=== PATIENT | female | born 2000 | race Native Hawaiian/Other Pacific Islander ===

== ENCOUNTER 2019-08-28 19:44 | Emergency (ER) | payer OTHER ==
--- NOTE | 2019-08-28 23:29 | XRay Report ---
CHEST 1 VIEW INDICATION: Chest Pain COMPARISON: None FINDINGS: Support devices: None Heart: Normal Lungs/Pleura: No acute pulmonary or pleural findings. IMPRESSION: 1. No acute disease. Signer Name: Too Turner MD Signed: 08/28/2019 11:24 PM Workstation Name: [email or web address]
--- NOTE | 2019-08-29 02:12 | Emergency Department Report ---
- General Chief Complaint: Chest Pain Stated Complaint: CHEST PAIN/STEPHANIE Time Seen by Provider: 08/29/19 01:51 Source: patient Mode of arrival: Ambulatory Limitations: No Limitations - History of Present Illness Initial Comments: 19-year-old female presents to the emergency room for cough or shortness of breath and chest pain worse with cough started this morning. Patient is taking nothing for her cough symptoms. Patient states that her heart is racing when she walks. Patient denies any past medical history. Patient last menstrual period was 08/28/2019. Patient denies any fever or runny nose nasal congestion. MD Complaint: cough Onset/Timin -: days(s) Consistency: intermittent Improves With: nothing Worsens With: activity Associated Symptoms: cough, shortness of breath. denies: fever, chills, headache, rhinorrhea, nasal congestion, sore throat, stiff neck, abdominal pain, nausea, vomiting Treatments Prior to Arrival: none - Related Data Previous Rx's Medication Instructions Recorded Last Taken Type Ibuprofen [Motrin 800 MG tab] 800 mg PO Q8HR PRN #21 tablet 03/30/19 Unknown Rx Allergies Allergy/AdvReac Type Severity Reaction Status Date / Time No Known Allergies Allergy Verified 03/30/19 15:00 ED Review of Systems ROS: Stated complaint: CHEST PAIN/STEPHANIE Other details as noted in HPI ED Past Medical Hx - Social History Smoking Status: Never Smoker Substance Use Type: None - Medications Home Medications: Home Medications Medication Instructions Recorded Confirmed Last Taken Type Ibuprofen [Motrin 800 MG tab] 800 mg PO Q8HR PRN #21 tablet 03/30/19 Unknown Rx ED Physical Exam - General Limitations: No Limitations General appearance: alert, in no apparent distress, obese - Head Head exam: Present: atraumatic, normocephalic - Eye Eye exam: Present: normal appearance - ENT ENT exam: Present: mucous membranes moist - Neck Neck exam: Present: normal inspection, full ROM - Respiratory Respiratory exam: Present: normal lung sounds bilaterally. Absent: respiratory distress - Cardiovascular Cardiovascular Exam: Present: regular rate, normal rhythm. Absent: systolic murmur, diastolic murmur, rubs, gallop - GI/Abdominal GI/Abdominal exam: Present: soft, normal bowel sounds - Neurological Exam Neurological exam: Present: alert, oriented X3 - Psychiatric Psychiatric exam: Present: normal affect, normal mood - Skin Skin exam: Present: warm, dry, intact, normal color. Absent: rash ED Course Vital Signs 08/28/19 20:37 Temperature 98.6 F Pulse Rate 95 H Respiratory 20 Rate Blood Pressure 152/89 O2 Sat by Pulse 96 Oximetry ED Medical Decision Making - Radiology Data Radiology results: report reviewed Patient: RAGHAVENDRA WAGNER MR#: [id number] : 2000 Acct:[id number] Age/Sex: 19 / F ADM Date: 08/28/19 Loc: ED Attending Dr: Ordering Physician: ALINE ADAME MD Date of Service: 08/28/19 Procedure(s): XR chest 1V ap Accession Number(s): [id number] cc: ED MD DEEP Fluoro Time In Minutes: CHEST 1 VIEW INDICATION: Chest Pain COMPARISON: None FINDINGS: Support devices: None Heart: Normal Lungs/Pleura: No acute pulmonary or pleural findings. IMPRESSION: 1. No acute disease. Signer Name: Too Turner MD Signed: 08/28/2019 11:24 PM Workstation Name: [id number] Transcribed By: TM Dictated By: Too Turner MD Electronically Authenticated By: Too Turner MD Signed Date/Time: 08/28/192323 DD/ 23 TD/TT: - Medical Decision Making 19-year-old female presents to the emergency room for cough or shortness of breath and chest pain worse with cough started this morning. Patient is taking nothing for her cough symptoms. Patient states that her heart is racing when she walks. Patient denies any past medical history. Patient last menstrual period was 08/28/2019. Patient denies any fever or runny nose nasal congestion. Chest x-ray is negative EKG is negative. Patient be discharged home with instructions to take [id number] Robitussin. Critical care attestation.: If time is entered above; I have spent that time in minutes in the direct care of this critically ill patient, excluding procedure time. ED Disposition Clinical Impression: Cough, Severely overweight Disposition: DC-01 TO HOME OR SELFCARE Is pt being admited?: No Does the pt Need Aspirin: No Condition: Stable Instructions: Antitussive/Decongestant/Expectorant (By mouth), Acute Cough (ED) Additional Instructions: EKG is negative, chest x-ray is negative for any acute findings. Please take [id number] Robitussin ibuprofen. Follow up with her primary care provider if his symptoms persist or gets worse. Referrals: PRIMARY CARE, [Primary Care Provider] - 3-5 Days Forms: Work/School Release Form(ED)
[2019-08-29 02:55] VITALS: BP 140/80
== END 2019-08-29 02:54 | disposition home or self-care (01) ==
LOC: ED 19:44
DX: R05 Cough (principal); R06.02 Shortness of breath; R07.89 Other chest pain
CPT/HCPCS: 71045; 93005; 93010